=== PATIENT | female | born 1940 | race Caucasian/White ===

== ENCOUNTER → 2023-07-05 11:42 | Outpatient (REF) | payer MEDICARE, OTHER, SELFPAY ==
[2023-07-05 13:21] LABS: % Eosinophils 2.6 % (0-6); % Immature Granulocytes 0.5 % (0-0.5); % Lymphocytes 26.8 % (20.5-51.1); % Neutrophils 59.1 % (42.2-75.2); Absolute Basophils 0.1 10^3/uL (0-0.2); Absolute Eosinophils 0.2 10^3/uL (0-0.7); Absolute Lymphocytes 2.1 10^3/uL (1.2-3.4); Absolute Monocytes 0.8 10^3/uL (0.1-0.6); Absolute Neutrophils 4.6 10^3/uL (1.4-6.5); Hematocrit 37.1 % (37.0-47.0); Mean Corp Hgb Conc. 32.3 g/dL (33.0-37.0); Mean Corpuscular Hgb 27.5 pg (27.0-31.0); Mean Corpuscular Volume 84.9 fL (81.0-99.0); Mean Platelet Volume 10.3 fL (7.4-10.4); Nucleated Red Blood Cells % 0 %; Platelet Count 337 10^3/uL (130-400); Red Blood Cell Count 4.37 10^6/uL (4.20-5.40); Red Cell Dist. Width 14.6 % (11.5-14.5); White Blood Cell Count 7.7 10^3/uL (4.8-10.8)
[2023-07-05 13:47] LABS: ALT (SGPT) 11 U/L (0-35); AST (SGOT) 22 U/L (14-36); Albumin 4.7 g/dl (3.5-5.0); Alkaline Phosphatase 86 U/L (38-126); Blood Urea Nitrogen 46 mg/dl (7-17); Calcium 9.7 mg/dl (8.4-10.2); Carbon Dioxide 20 mmol/L (22-30); Chloride 102 mmol/L (98-107); Glucose 111 mg/dl (70-99); HDL Cholesterol 65 mg/dl; LDL Cholesterol, Calculated 56 mg/dl; Potassium 5.7 mmol/L (3.5-5.1); Sodium 132 mmol/L (135-145); Total Bilirubin 0.3 mg/dl (0.2-1.3); Total Cholesterol 144 mg/dl (50-199); Total Protein 7.5 g/dl (6.3-8.2); Triglyceride 118 mg/dl (10-149); Very Low Density Lipoprotein 23 mg/dl (0-30); eGFR 27.78
[2023-07-05 14:16] LABS: TSH Reflex To Free T4 2.15 uIU/ml (0.47-4.68)
== END ==
LOC: REG 11:42
PROVIDERS: ATTENDING PHYSICIAN Family Medicine
DX: E11.9 Type 2 diabetes mellitus without complications (principal); E78.5 Hyperlipidemia, unspecified; I10 Essential (primary) hypertension
CPT/HCPCS: 36415; 80053; 80061; 82565; 84443; 85025

== ENCOUNTER 2023-07-08 12:13 | Emergency (ER) | payer MEDICARE, SELFPAY ==
[2023-07-08 12:16] VITALS: BP 118/59
--- NOTE | 2023-07-08 13:40 | ED.GENMED ---
History of Present Illness
General
Chief Complaint: Abnormal Lab Value
Source: patient
Exam Limitations: none
Time Seen by Provider: 07/08/23 13:19
Nursing documentation reviewed up to this point in time: agreed with
Travel History
Have you had any contact with someone who has COVID-19?: No
Do you have any symptoms of coronavirus? Fever > 100 degrees, chills, cough, shortness of breath, sore throat, loss of taste or smell, muscle aches, or headache?: No
History of Present Illness
History of Present Illness:
Patient presents to ED for evaluation after outpatient blood work revealed worsening kidney function, along with increased potassium level. Patient had her first blood work 3 days ago and repeated this afternoon, with aforementioned results.
Patient otherwise has no complaints. Denies fever or chills. Denies coughing. Denies dizziness. Denies headache. Denies sore throat. Denies vomiting or diarrhea. Of note, patient has chronic urinary tract infection, for which she is currently
taking Bactrim once daily prophylactically. In addition, secondary to elevated blood pressure, lisinopril was initiated couple of months ago.
Past History
Past History
ED Past Medical History: HTN, Hypercholesterolemia, NIDDM and Other (Pancreatitis)
ED Past Surgical History: Gynecological (Tubal ligation) and Other (Pancreatic cyst drainage)
Social History
Tobacco: Non-smoker
Alcohol: None
Personal:
Living: alone (Rehabilitation)
Employment: Retired
Review of Systems
Review of Systems
Allergies reviewed?: Yes
All Other Systems: ROS reviewed and negative except as documented in HPI and ROS
Constitutional: Reports no symptoms; Denies fever
Respiratory: Reports no symptoms
Cardiac: Reports no symptoms
ABD/GI: Reports no symptoms
: Reports no symptoms
Musculoskeletal: Reports no symptoms
Skin: Reports no symptoms
Neurological: Reports no symptoms
Phy Exam
Physical Exam
Physical Exam:
Physical Exam
General: no apparent distress, not acutely ill. afebrile
Head: nc/at. eomi
Neck: supple. no meningeal signs.
Heart: s1/s2 regular rate and rhythm, no murmur. equal radial pulses.
Lungs: no acute respiratory distress. clear bilaterally
Abdomen: normal bowel sounds. not tender.
Neuro: alert and oriented. no focal neurological deficits
Skin: no rash
Psychiatric: well kept. interactive and cooperative
Extremities: no edema. no calf tenderness.
Course
Orders/Labs/Results
Orders:
Orders
07/08/23 12:20
EKG [Electrocardiogram (*1)] Urgent
Reason for Study: Tachycardia
EKG- Treatment ONCE
07/08/23 14:37
Urinalysis Reflex To Culture Urgent
Date Specimen was Collected: 07/08/23
Time Specimen was Collected: 13:42
Urine Microscopic Reflex Cult Urgent
07/08/23 16:03
Sodium Zirconium Cyclosilicate [Lokelma] 10 gram PO NOW STA
Abnormal Lab Results
07/08/23
14:37
Leukocyte Esterase Rfl Trace A
(Negative)
Vital Signs
Initial and Last Documented VS:
Initial Vital Signs
Temp Pulse Resp BP Pulse Ox
98.0 F 96 18 118/59 96
07/08/23 12:16 07/08/23 12:16 07/08/23 12:16 07/08/23 12:16 07/08/23 12:16
Last Documented Vital Signs
Temp Pulse Resp BP Pulse Ox
97.8 F 78 14 157/61 97
07/08/23 16:14 07/08/23 16:14 07/08/23 16:14 07/08/23 16:14 07/08/23 16:14
MDM/Problems Addressed
MDM/Problems Addressed:
Blood work reviewed. EKG without any acute changes, i.e. peaked T waves or widening of QRS. Patient remains hemodynamically stable without any complaints. Patient's worsening function along with hyperkalemia, likely secondary to chronic use of
Bactrim along with lisinopril. As such, patient will be advised to discontinue both Bactrim and lisinopril, along with 1 additional dose of Lokelma tomorrow, and repeat blood work through her primary care physician on Wednesday. Patient and daughter
requesting at time of discharge.
*EKG
Interpreted by ED Provider?: Yes
EKG Intrepretation Date: 07/08/23
Heart Rate: 87
Rate: normal
Rhythm: sinus
Velma: normal axis
*Critical Care Note
Total Time (30-74mins, 75-104mins- exclusive of procedures): Not Applicable
ED Attending Note
-
Portions of this chart may have been created with voice recognition software.� Occasional wrong word or��sound alike� substitutions may have occurred due to the inherent limitations of voice recognition software.
Discharge Plan
Departure
Patient Disposition: Home (Routine Discharge)
Date of Disposition: 07/08/23
Time of Disposition: 16:05
Patient with high blood pressure during this ER visit?: No
Condition: Good
Discharge Problem:
Acute renal failure (ARF), Acute hyperkalemia
Instructions: Hyperkalemia (DC), Acute Kidney Injury (DC)
Prescriptions:
New
Lokelma 10 gram powder in packet
10 g PO DAILY 1 Days Qty: 1 0RF
No Action
acetaminophen 325 MG tablet
650 mg PO Q4HPRN PRN (Reason: mild pain)
sertraline 100 MG tablet
100 mg PO DAILY
risperidone 1 MG tablet
1 mg PO HS
metformin 500 mg Tablet
500 mg PO BID
aspirin 81 mg Tablet,Delayed Release (Dr/Ec)
81 mg PO HS
carbidopa-levodopa 25-100 mg Tablet
1 tab PO TID
melatonin 5 mg Tablet
5 mg PO HS
Vitamin D (with calcium)
1 tab PO DAILY
Patient Comments:
07/08/2023, per daughter, pt. ran out of this vitamin about a week ago.
biotin
1 tab PO DAILY
rosuvastatin [Crestor] 10 mg Tablet
10 mg PO DAILY
polyethylene glycol 3350 [Miralax] 17 gram Powder In Packet
17 g PO DAILY PRN (Reason: constipation)
cetirizine 10 mg Tablet
10 mg PO DAILY
sennosides-docusate sodium [Senna-S] 8.6-50 mg Tablet
1 tab-cap PO DAILY
sulfamethoxazole-trimethoprim 800-160 mg Tablet
1 tab PO DAILY
omeprazole 40 mg Capsule,Delayed Release(Dr/Ec)
40 mg PO DAILY PRN (Reason: heartburn)
lisinopril 10 mg Tablet
10 mg PO HS
Coricidin 2-325 mg Tablet
1 tab PO HSPRN PRN (Reason: ear pain)
Referrals:
Tosin Wilson DO [Family Provider] -
Activity Restrictions/Additional Instructions:
As discussed, please follow-up with your primary care physician for reevaluation, including repeat blood work on Wednesday. Until then, recommend discontinuation of Bactrim and lisinopril. Your prescription for 1 additional dose of Lokelma was sent
electronically to [facility] pharmacy in [place].
Interventions
Interventions:
*Risk Screen - Suicide Last Done: 07/08/23 12:16
*General Assessment Last Done: 07/08/23 12:16
*Neglect/Abuse Screening Last Done: 07/08/23 12:16
*ED COVID-19 Vaccine History Last Done: 07/08/23 12:16
*Nursing Disposition Last Done: 07/08/23 16:28
Discharge Date and Time
Discharge Date/Time: 07/08/23 16:29
Print Language: TUVALUAN
[2023-07-08 14:46] LABS: Urine Albumin Negative (Neg - Trace); Urine Bilirubin Negative (Negative); Urine Character Clear (Clear); Urine Color Yellow; Urine Glucose Negative (Negative); Urine Ketone Negative (Negative); Urine Leukocyte Trace (Negative); Urine Nitrite Negative (Negative); Urine Occult Blood Negative (Negative); Urine Specific Gravity 1.015 (<1.030); Urine Urobilinogen Negative (Neg - 1+)
[2023-07-08 15:10] LABS: Urine Mucus Few
[2023-07-08 15:11] LABS: Urine Amorphous Seen; Urine Red Blood Cell 0-2 /HPF (0-2)
[2023-07-08 15:12] LABS: Urine White Cell 0-2 /HPF (0-5)
[2023-07-08 16:14] VITALS: BP 157/61
[2023-07-08] MEDS: LOKELMA 10 GRAM PO (16:15)
== END 2023-07-08 16:29 | disposition home or self-care (01) ==
LOC: EMR 12:13
PROVIDERS: EMERGENCY PHYSICIAN Emergency Medicine; FAMILY PHYSICIAN Family Medicine
DX: N17.9 Acute kidney failure, unspecified (principal); E87.5 Hyperkalemia; I10 Essential (primary) hypertension; E78.00 Pure hypercholesterolemia, unspecified
CPT/HCPCS: 99284; 36415; 80048; 81003; 81015; 93005

== ENCOUNTER → 2023-07-13 08:45 | Outpatient (REF) | payer MEDICARE, SELFPAY ==
[2023-07-13 10:29] LABS: Blood Urea Nitrogen 23 mg/dl (7-17); Calcium 10.2 mg/dl (8.4-10.2); Carbon Dioxide 24 mmol/L (22-30); Chloride 104 mmol/L (98-107); Glucose 115 mg/dl (70-99); Potassium 4.9 mmol/L (3.5-5.1); Sodium 138 mmol/L (135-145); eGFR 45.19
== END ==
LOC: REG 08:45
PROVIDERS: ATTENDING PHYSICIAN Family Medicine
DX: R79.89 Other specified abnormal findings of blood chemistry (principal); E11.9 Type 2 diabetes mellitus without complications
CPT/HCPCS: 36415; 80048; 83036

== ENCOUNTER 2023-09-10 20:42 | Emergency (ER) | payer OTHER, SELFPAY ==
[2023-09-10 20:44] VITALS: BP 109/81
--- NOTE | 2023-09-10 21:32 | ED.GENMED ---
History of Present Illness
General
Chief Complaint: Musculo-Skeletal Complaint
Time Seen by Provider: 09/10/23 21:05
Travel History
Have you had any contact with someone who has COVID-19?: No
Do you have any symptoms of coronavirus? Fever > 100 degrees, chills, cough, shortness of breath, sore throat, loss of taste or smell, muscle aches, or headache?: No
History of Present Illness
History of Present Illness:
83-year-old female presents to the emergency department for evaluation of left facial pain and swelling that developed this morning. She notes she had a minor fall 2 weeks ago and struck the left side of her head but did not have any pain or
swelling until this morning. She is unable to open her mouth fully secondary to pain. No fevers or chills. No dysphagia or voice changes. No chest pain or shortness of breath
Past History
Past History
ED Past Medical History: HTN, Hypercholesterolemia, NIDDM and Other (Pancreatitis)
ED Past Surgical History: Gynecological (Tubal ligation) and Other (Pancreatic cyst drainage)
Social History
Tobacco: Non-smoker
Alcohol: None
Personal:
Living: alone (Rehabilitation)
Employment: Retired
Review of Systems
Review of Systems
Allergies reviewed?: Yes
All Other Systems: ROS reviewed and negative except as documented in HPI and ROS
Phy Exam
Physical Exam
Physical Exam:
GEN: Well appearing, NAD, WDWN
HEENT: Oral mucosa moist, no scleral icterus, inflamed and boggy left parotid gland, mild trismus
Cardiac: Regular rate
Lung: No respiratory distress, no tachypnea
MSK: No gross deformity or injuries
Skin: Good color, no pallor or jaundice, no rashes
Neuro: AO x3, moves all extremities freely
Psych: Calm, cooperative
Course
Orders/Labs/Results
Orders:
Orders
09/10/23 21:31
CT Facial Bones W/ Iv Contrast Urgent
Comment:
Reason For Exam: L facial swelling
09/10/23 21:40
Complete Blood Count/With Diff Urgent
Comprehensive Metabolic Panel Urgent
09/10/23 23:00
MetroNIDAZOLE [Flagyl] 500 mg PO NOW STA
09/10/23 23:10
Cefuroxime Axetil [Ceftin] 500 mg PO NOW STA
Abnormal Lab Results
09/10/23
21:40
WBC 14.1 H 10^3/uL
(4.8-10.8)
Hct 36.9 L %
(37.0-47.0)
Abs Immat Gran (auto) 0.1 H 10^3/uL
(0-0.05)
Absolute Neuts (auto) 10.0 H 10^3/uL
(1.4-6.5)
Absolute Monos (auto) 1.0 H 10^3/uL
(0.1-0.6)
Lymphocytes % 20.3 L %
(20.5-51.1)
Sodium 131 L mmol/L
(135-145)
Chloride 97 L mmol/L
(98-107)
Carbon Dioxide 20 L mmol/L
(22-30)
BUN 21 H mg/dl
(7-17)
Creatinine 1.1 H mg/dL
(0.6-1.0)
Glucose 165 H mg/dl
(70-99)
09/10/23 21:40
09/10/23 21:40
Vital Signs
Initial and Last Documented VS:
Initial Vital Signs
Temp Pulse Resp BP Pulse Ox
98.3 F 80 18 109/81 98
09/10/23 20:44 09/10/23 20:44 09/10/23 20:44 09/10/23 20:44 09/10/23 20:44
Last Documented Vital Signs
Temp Pulse Resp BP Pulse Ox
98.3 F 80 18 109/81 98
09/10/23 20:44 09/10/23 20:44 09/10/23 20:44 09/10/23 20:44 09/10/23 20:44
MDM/Problems Addressed
MDM/Problems Addressed:
Labs show mild leukocytosis, imaging reveals a left focal parotitis with no evidence for abscess. The patient is clinically well, we will start empiric antibiotic therapy in the emergency department. She has a GI intolerance to Augmentin thus we
will treat with cefuroxime and metronidazole. Discussed ED return parameters
*Critical Care Note
Total Time (30-74mins, 75-104mins- exclusive of procedures): Not Applicable
ED Attending Note
-
Portions of this chart may have been created with voice recognition software.� Occasional wrong word or��sound alike� substitutions may have occurred due to the inherent limitations of voice recognition software.
Discharge Plan
Departure
Patient Disposition: Home (Routine Discharge)
Date of Disposition: 09/10/23
Time of Disposition: 23:03
Patient with high blood pressure during this ER visit?: No
Discharge Problem:
Acute parotitis
Instructions: Parotid Gland Infection
Prescriptions:
New
cefuroxime axetil 500 mg tablet
500 mg PO BID Qty: 14 0RF
metronidazole 500 mg tablet
500 mg PO TID 7 Days Qty: 21 0RF
No Action
acetaminophen 325 MG tablet
650 mg PO Q4HPRN PRN (Reason: mild pain)
sertraline 100 MG tablet
100 mg PO DAILY
risperidone 1 MG tablet
1 mg PO HS
metformin 500 mg Tablet
500 mg PO BID
aspirin 81 mg Tablet,Delayed Release (Dr/Ec)
81 mg PO HS
carbidopa-levodopa 25-100 mg Tablet
1 tab PO TID
melatonin 5 mg Tablet
5 mg PO HS
Vitamin D (with calcium)
1 tab PO DAILY
Patient Comments:
07/08/2023, per daughter, pt. ran out of this vitamin about a week ago.
biotin
1 tab PO DAILY
rosuvastatin [Crestor] 10 mg Tablet
10 mg PO DAILY
polyethylene glycol 3350 [Miralax] 17 gram Powder In Packet
17 g PO DAILY PRN (Reason: constipation)
cetirizine 10 mg Tablet
10 mg PO DAILY
sennosides-docusate sodium [Senna-S] 8.6-50 mg Tablet
1 tab-cap PO DAILY
sulfamethoxazole-trimethoprim 800-160 mg Tablet
1 tab PO DAILY
omeprazole 40 mg Capsule,Delayed Release(Dr/Ec)
40 mg PO DAILY PRN (Reason: heartburn)
lisinopril 10 mg Tablet
10 mg PO HS
Coricidin 2-325 mg Tablet
1 tab PO HSPRN PRN (Reason: ear pain)
Lokelma 10 gram powder in packet
10 g PO DAILY 1 Days Qty: 1 0RF
Referrals:
Tosin Wilson DO [Family Provider] -
Interventions
Interventions:
*Risk Screen - Suicide Last Done: 09/10/23 20:44
*General Assessment Last Done: 09/10/23 20:44
*Neglect/Abuse Screening Last Done: 09/10/23 20:44
ED-Musculoskeletal Assessment Last Done: 09/10/23 22:19
Discharge Date and Time
Print Language: SERBIAN
[2023-09-10 21:44] LABS: % Basophils 0.6 % (0-2); % Eosinophils 1.2 % (0-6); % Immature Granulocytes 0.4 % (0-0.5); % Lymphocytes 20.3 % (20.5-51.1); % Monocytes 6.8 % (1.7-9.3); % Neutrophils 70.7 % (42.2-75.2); Absolute Basophils 0.1 10^3/uL (0-0.2); Absolute Eosinophils 0.2 10^3/uL (0-0.7); Absolute Immature Granulocytes 0.1 10^3/uL (0-0.05); Absolute Lymphocytes 2.9 10^3/uL (1.2-3.4); Hematocrit 36.9 % (37.0-47.0); Hemoglobin 12.8 g/dL (12.0-16.0); Mean Corp Hgb Conc. 34.7 g/dL (33.0-37.0); Mean Corpuscular Hgb 28.8 pg (27.0-31.0); Mean Corpuscular Volume 82.9 fL (81.0-99.0); Mean Platelet Volume 9.4 fL (7.4-10.4); Nucleated Red Blood Cells % 0 %; Platelet Count 299 10^3/uL (130-400); Red Blood Cell Count 4.45 10^6/uL (4.20-5.40); Red Cell Dist. Width 12.5 % (11.5-14.5); White Blood Cell Count 14.1 10^3/uL (4.8-10.8)
[2023-09-10 22:08] LABS: ALT (SGPT) 15 U/L (0-35); AST (SGOT) 29 U/L (14-36); Albumin 4.8 g/dl (3.5-5.0); Alkaline Phosphatase 61 U/L (38-126); Blood Urea Nitrogen 21 mg/dl (7-17); Calcium 9.8 mg/dl (8.4-10.2); Carbon Dioxide 20 mmol/L (22-30); Chloride 97 mmol/L (98-107); Glucose 165 mg/dl (70-99); Potassium 4.6 mmol/L (3.5-5.1); Sodium 131 mmol/L (135-145); Total Bilirubin 0.5 mg/dl (0.2-1.3); Total Protein 7.5 g/dl (6.3-8.2); eGFR 49.86
[2023-09-10 23:07] VITALS: BMI 28.3
[2023-09-10] MEDS: FLAGYL 500 MG PO (23:52)
[2023-09-10] MEDS: CEFTIN 500 MG PO (23:52)
[2023-09-11 00:03] VITALS: BP 178/74
== END 2023-09-11 00:05 | disposition home or self-care (01) ==
LOC: EMR 20:42
PROVIDERS: Physician Assistant; EMERGENCY PHYSICIAN Emergency Medicine; FAMILY PHYSICIAN Family Medicine
DX: K11.21 Acute sialoadenitis (principal); I10 Essential (primary) hypertension
CPT/HCPCS: 99284; 70487; 80053; 85025; Q9967

== ENCOUNTER → 2025-01-03 16:09 | Outpatient (REF) | payer OTHER, SELFPAY | LOC: RAD 16:09 | PROVIDERS: ATTENDING PHYSICIAN Family Medicine | DX: D86.9 Sarcoidosis, unspecified (principal); R91.1 Solitary pulmonary nodule | CPT/HCPCS: 71250 ==

== ENCOUNTER → 2025-02-10 10:25 | Outpatient (REF) | payer OTHER, SELFPAY | LOC: RAD 10:25 | PROVIDERS: ATTENDING PHYSICIAN Family Medicine | DX: M54.9 Dorsalgia, unspecified (principal) | CPT/HCPCS: 72070; 72114 ==